=== PATIENT | male | born 1980 | race African-American/Black ===

== ENCOUNTER 2017-03-26 21:59 | Emergency (ER) | payer OTHER ==
[~2017-03-26] VITALS: Ht 180.3 cm; Wt 74.0 kg
[2017-03-26 22:01] VITALS: BP 148/90
== END 2017-03-27 01:00 | disposition left against medical advice (07) ==
LOC: ER 22:15
DX: R51 Headache (principal); Z53.21 Procedure and treatment not carried out due to patient leaving prior to being seen by health care provider

== ENCOUNTER 2020-05-21 14:07 | Emergency (ER) | payer OTHER ==
[~2020-05-21] VITALS: Ht 177.8 cm; Wt 77.5 kg
[2020-05-21 14:45] VITALS: BP 156/95
== END 2020-05-21 15:04 | disposition home or self-care (01) ==
LOC: ER 14:16
DX: R00.2 Palpitations (principal); R07.2 Precordial pain; M79.602 Pain in left arm; R03.0 Elevated blood-pressure reading, without diagnosis of hypertension; F12.90 Cannabis use, unspecified, uncomplicated; F15.90 Other stimulant use, unspecified, uncomplicated; Z87.81 Personal history of (healed) traumatic fracture
CPT/HCPCS: 93005; 99283

== ENCOUNTER 2020-08-14 20:19 | Emergency (ER) | payer MEDICAID, OTHER | END 2020-08-14 20:37 | disposition left against medical advice (07) | LOC: ER 20:19 | DX: R42 Dizziness and giddiness (principal); Z53.21 Procedure and treatment not carried out due to patient leaving prior to being seen by health care provider ==

== ENCOUNTER 2020-08-17 13:01 | Emergency (ER) | payer OTHER ==
[~2020-08-17] VITALS: Ht 177.8 cm; Wt 85.0 kg
[2020-08-17 14:13] LABS: BG BASE EXCESS 0.6 mmol/L (-2.0-2.0); BG CARBOXYHEMOGLOBIN 0.1 % (0.5-1.5); BG DEOXYHEMOGLOBIN 2.7 % (0.0-5.0); BG FRACTION INSPIRED OXYGEN 21; BG HCO3 ACT 25.9 mmol/L (22.0-26.0); BG METHEMOGLOBIN 0.3 % (0.0-1.5); BG OXYGEN SATURATION 97.3 % (92.0-98.5); BG OXYHEMOGLOBIN 96.9 % (94.0-97.0); BG PCO2 44.1 mmHg (35.0-45.0); BG PH 7.387 (7.350-7.450); BG PO2 95.4 mmHg (75.0-100.0); BG SAMPLE SITE RIGHT BRACHIAL; BG VENT MODE ROOM AIR
[2020-08-17 14:35] LABS: CHLORIDE 109 mEq/L (98-107)
[2020-08-17 14:39] LABS: BASOPHILS % 0.7 % (0.0-2.0); EOSINOPHILS % 2.3 % (0.0-5.0); ETHANOL BLOOD < 10 mg/dL; LYMPHOCYTES % 25.6 % (20.0-50.0); MEAN CORPUSCULAR HEMOGLOBIN 27.6 pg (28.0-32.0); MEAN PLATELET VOLUME 8.8 fl (7.4-10.4); MONOCYTES % 5.6 % (2.0-8.0); NEUTROPHILS % 65.8 % (40.0-76.0); PLATELET 511 x1000/uL (130-400); RED BLOOD CELL COUNT 4.69 mill/uL (4.7-6.1); RED CELL DISTRIBUTION WIDTH 16.6 % (11.6-14.6)
[2020-08-17 14:58] LABS: *AMPHETAMINES SCREEN URINE NEGATIVE (NEGATIVE); *BARBITURATES SCREEN URINE NEGATIVE (NEGATIVE); *BENZODIAZEPINES SCREEN URINE NEGATIVE (NEGATIVE); *COCAINE SCREEN URINE NEGATIVE (NEGATIVE); METHADONE URINE SCREEN NEGATIVE (NEGATIVE)
[2020-08-17 14:59] LABS: CANNABINOID URINE SCREEN NEGATIVE (NEGATIVE); OPIATES URINE SCREEN NEGATIVE (NEGATIVE); PHENCYCLIDINE URINE SCREEN NEGATIVE (NEGATIVE)
[2020-08-17 15:33] VITALS: BP 126/73
== END 2020-08-17 15:47 | disposition home or self-care (01) ==
LOC: ER 13:01
DX: R07.89 Other chest pain (principal); F41.0 Panic disorder [episodic paroxysmal anxiety]; F12.90 Cannabis use, unspecified, uncomplicated; F15.10 Other stimulant abuse, uncomplicated; D64.9 Anemia, unspecified; D72.829 Elevated white blood cell count, unspecified
CPT/HCPCS: 36415; 36600; 71045; 80053; 80305; 80320; 82375; 82805; 83880; 84484; 85025; 93005; 99285; G0480

== ENCOUNTER 2020-10-24 17:42 | Emergency (ER) | payer OTHER, MEDICAID ==
[~2020-10-24] VITALS: Ht 177.8 cm; Wt 81.0 kg
[2020-10-24 17:49] VITALS: BP 137/93
[2020-10-24] MEDS ORDERED: MAGNESIUM/ALUMINUM HYDROXIDE/SIMETHICONE 30ML UDC PO STA (18:12)
[2020-10-24] MEDS ORDERED: ONDANSETRON 4MG ODT PO STA (18:12)
[2020-10-24] MEDS ORDERED: ACETAMINOPHEN 325MG TABLET PO STA (18:12)
[2020-10-24 18:58] LABS: CLARITY URINE CLEAR (CLEAR); COLOR URINE YELLOW (YELLOW); KETONES URINE TRACE (NEGATIVE); LEUKOCYTE ESTERASE URINE NEGATIVE (NEGATIVE); NITRITE URINE NEGATIVE (NEGATIVE); OCCULT BLOOD URINE NEGATIVE (NEGATIVE); PH URINE 5.5 (4.5-8.0); PROTEIN URINE 1+ (NEGATIVE); SPECIFIC GRAVITY URINE 1.022 (1.005-1.030); UROBILINOGEN URINE 0.2 E.U./dL (0.2-1.0)
[2020-10-24 19:10] LABS: *AMPHETAMINES SCREEN URINE PRESUMTIVE POSITIVE (NEGATIVE); *BARBITURATES SCREEN URINE NEGATIVE (NEGATIVE); *BENZODIAZEPINES SCREEN URINE NEGATIVE (NEGATIVE)
[2020-10-24 19:11] LABS: *COCAINE SCREEN URINE NEGATIVE (NEGATIVE); METHADONE URINE SCREEN NEGATIVE (NEGATIVE); PHENCYCLIDINE URINE SCREEN NEGATIVE (NEGATIVE)
[2020-10-24 19:14] LABS: OPIATES URINE SCREEN NEGATIVE (NEGATIVE)
[2020-10-24 19:20] LABS: CANNABINOID URINE SCREEN NEGATIVE (NEGATIVE)
[2020-10-24 19:25] LABS: BASOPHILS % 0.4 % (0.0-2.0); EOSINOPHILS % 3.2 % (0.0-5.0); HEMATOCRIT. 36.5 % (42.0-52.0); HEMOGLOBIN. 12.2 g/dL (14.0-18.0); LYMPHOCYTES % 30.5 % (20.0-50.0); MEAN CORPUSCULAR HEMOGLOBIN 28.4 pg (28.0-32.0); MEAN CORPUSCULAR VOLUME 84.9 fL (80.0-94.0); MONOCYTES % 3.5 % (2.0-8.0); NEUTROPHILS % 62.4 % (40.0-76.0); PLATELET 549 x1000/uL (130-400); RED CELL DISTRIBUTION WIDTH 15.2 % (11.6-14.6)
[2020-10-24 19:32] LABS: CHLORIDE 110 mEq/L (98-107)
[2020-10-24 19:37] LABS: ETHANOL BLOOD 12 mg/dL
[2020-10-24] MEDS ORDERED: FAMO-135 PO (20:36)
== END 2020-10-24 20:45 | disposition home or self-care (01) ==
LOC: ER 17:42
DX: R10.12 Left upper quadrant pain (principal); R00.2 Palpitations; F10.129 Alcohol abuse with intoxication, unspecified; F15.129 Other stimulant abuse with intoxication, unspecified; F16.129 Hallucinogen abuse with intoxication, unspecified; Y90.0 Blood alcohol level of less than 20 mg/100 ml
CPT/HCPCS: 36415; 80053; 80305; 80320; 81003; 83690; 85025; 93005; 99284; Q0162; G0480

== ENCOUNTER 2020-10-29 11:51 | Emergency (ER) | payer MEDICAID, OTHER ==
[~2020-10-29] VITALS: Ht 177.8 cm; Wt 81.0 kg
[~2020-10-29 11:51] MED LIST: FAMO-135 PO
[2020-10-29] MEDS ORDERED: SODIUM CHLORIDE 0.9% 1,000 ML IV ONE (12:30)
[2020-10-29 12:32] LABS: BASOPHILS % 0.7 % (0.0-2.0); EOSINOPHILS % 4.5 % (0.0-5.0); HEMATOCRIT. 39.9 % (42.0-52.0); HEMOGLOBIN. 12.9 g/dL (14.0-18.0); LYMPHOCYTES % 27.3 % (20.0-50.0); MEAN CORPUSCULAR HEMOGLOBIN 27.7 pg (28.0-32.0); MEAN CORPUSCULAR VOLUME 85.8 fL (80.0-94.0); MEAN PLATELET VOLUME 7.6 fl (7.4-10.4); MONOCYTES % 5.1 % (2.0-8.0); NEUTROPHILS % 62.4 % (40.0-76.0); PLATELET 650 x1000/uL (130-400); RED BLOOD CELL COUNT 4.65 mill/uL (4.7-6.1); RED CELL DISTRIBUTION WIDTH 15.4 % (11.6-14.6)
[2020-10-29 12:37] LABS: CHLORIDE 106 mEq/L (98-107)
[2020-10-29 12:40] LABS: ETHANOL BLOOD < 10 mg/dL
[2020-10-29] MEDS ORDERED: PROCHLORPERAZINE MALEATE 10MG TABLET PO SCH (15:00)
[2020-10-29] MEDS ORDERED: KETOROLAC 15MG/ML VIAL IV SCH (15:00)
[2020-10-29] MEDS ORDERED: DIPHENHYDRAMINE 25MG CAPSULE PO SCH (15:00)
[2020-10-29] MEDS ORDERED: IOHEXOL-350 100 ML BOTTLE ONE (16:12)
[2020-10-29 18:55] VITALS: BP 144/86
== END 2020-10-29 18:57 | disposition home or self-care (01) ==
LOC: ER 12:13
DX: R51.9 Headache, unspecified (principal); R42 Dizziness and giddiness; H53.8 Other visual disturbances; R11.0 Nausea; R07.89 Other chest pain; I10 Essential (primary) hypertension; F14.90 Cocaine use, unspecified, uncomplicated; Z87.828 Personal history of other (healed) physical injury and trauma
CPT/HCPCS: 36415; 70496; 71045; 80053; 80320; 84484; 85025; 93005; 96374; 99285; J1885; J7030; Q0163; Q0164; Q9967; G0480

== ENCOUNTER 2020-11-02 09:27 | Emergency (ER) | payer MEDICAID ==
[~2020-11-02] VITALS: Ht 177.8 cm; Wt 81.0 kg
[2020-11-02] MEDS ORDERED: ASPIRIN 81MG TABLET PO ONE (10:00)
[2020-11-02 10:14] LABS: BASOPHILS % 0.7 % (0.0-2.0); EOSINOPHILS % 2.7 % (0.0-5.0); HEMATOCRIT. 37.5 % (42.0-52.0); HEMOGLOBIN. 12.3 g/dL (14.0-18.0); LYMPHOCYTES % 21.6 % (20.0-50.0); MEAN CORPUSCULAR HEMOGLOBIN 28.1 pg (28.0-32.0); MEAN CORPUSCULAR VOLUME 85.6 fL (80.0-94.0); MEAN PLATELET VOLUME 7.9 fl (7.4-10.4); MONOCYTES % 2.6 % (2.0-8.0); NEUTROPHILS % 72.4 % (40.0-76.0); PLATELET 641 x1000/uL (130-400); RED BLOOD CELL COUNT 4.38 mill/uL (4.7-6.1); RED CELL DISTRIBUTION WIDTH 15.3 % (11.6-14.6)
[2020-11-02 10:23] LABS: CHLORIDE 105 mEq/L (98-107)
[2020-11-02] MEDS ORDERED: IBUP-2029 MT (12:34)
[2020-11-02 12:40] VITALS: BP 150/88
== END 2020-11-02 12:46 | disposition home or self-care (01) ==
LOC: ER 09:27
DX: R07.2 Precordial pain (principal); E87.6 Hypokalemia; I10 Essential (primary) hypertension
CPT/HCPCS: 36415; 71045; 80053; 83880; 84484; 85025; 93005; 99285; Z7610

== ENCOUNTER 2020-11-09 04:27 | Emergency (ER) | payer MEDICAID ==
[~2020-11-09] VITALS: Ht 175.3 cm; Wt 77.0 kg
[~2020-11-09 04:27] MED LIST changes: +IBUP-2029 MT
[2020-11-09] MEDS ORDERED: ONDANSETRON HCL 4MG/2ML INJ IV STA (04:50)
[2020-11-09] MEDS ORDERED: MORPHINE SULFATE 4 MG/ML CPJ (NOT FOR IM USE) IV STA (04:50)
[2020-11-09] MEDS ORDERED: NITROGLYCERIN OINT 1GM/INCH UDPKT TD ONE (05:00)
[2020-11-09] MEDS ORDERED: ASPIRIN 81MG TABLET PO ONE (05:00)
[2020-11-09] MEDS ORDERED: MORPHINE SULFATE 2 MG/ML CPJ (NOT FOR IM USE) IV SCH (05:00)
[2020-11-09] MEDS ORDERED: SODIUM CHLORIDE 0.9% 1,000 ML IV ONE (05:00)
[2020-11-09 05:05] LABS: BASOPHILS % 0.8 % (0.0-2.0); EOSINOPHILS % 2.3 % (0.0-5.0); HEMATOCRIT. 40.6 % (42.0-52.0); HEMOGLOBIN. 13.1 g/dL (14.0-18.0); LYMPHOCYTES % 21.5 % (20.0-50.0); MEAN CORPUSCULAR HEMOGLOBIN 27.3 pg (28.0-32.0); MEAN CORPUSCULAR VOLUME 84.8 fL (80.0-94.0); MEAN PLATELET VOLUME 8.3 fl (7.4-10.4); MONOCYTES % 3.6 % (2.0-8.0); NEUTROPHILS % 71.8 % (40.0-76.0); PLATELET 581 x1000/uL (130-400); RED BLOOD CELL COUNT 4.79 mill/uL (4.7-6.1)
[2020-11-09 05:12] LABS: CHLORIDE 106 mEq/L (98-107)
[2020-11-09] MEDS ORDERED: IOHEXOL-350 100 ML BOTTLE ONE (06:16)
[2020-11-09 06:53] VITALS: BP 138/92
== END 2020-11-09 06:57 | disposition home or self-care (01) ==
LOC: ER 04:27
DX: R07.89 Other chest pain (principal); I10 Essential (primary) hypertension; F41.9 Anxiety disorder, unspecified
CPT/HCPCS: 36415; 71045; 71275; 80053; 83880; 84484; 85025; 85379; 93005; 96361; 96374; 96375; 99285; J2270; J2405; J7030; Q9967; Z7610

== ENCOUNTER 2020-11-11 05:01 | Emergency (ER) | payer MEDICAID, OTHER ==
[~2020-11-11] VITALS: Ht 177.8 cm; Wt 80.0 kg
[2020-11-11 05:48] LABS: BASOPHILS % 0.4 % (0.0-2.0); HEMATOCRIT. 36.3 % (42.0-52.0); LYMPHOCYTES % 29.7 % (20.0-50.0); MEAN CORPUSCULAR VOLUME 84.8 fL (80.0-94.0); MEAN PLATELET VOLUME 7.7 fl (7.4-10.4); MONOCYTES % 3.5 % (2.0-8.0); NEUTROPHILS % 62.4 % (40.0-76.0); PLATELET 554 x1000/uL (130-400); RED BLOOD CELL COUNT 4.28 mill/uL (4.7-6.1); RED CELL DISTRIBUTION WIDTH 14.6 % (11.6-14.6)
[2020-11-11 05:56] LABS: CHLORIDE 107 mEq/L (98-107)
[2020-11-11] MEDS ORDERED: DICY20TA11 MT (06:42)
[2020-11-11] MEDS ORDERED: ACETAMINOPHEN 325MG TABLET PO ONE (07:00)
[2020-11-11] MEDS ORDERED: DICYCLOMINE HCL 10MG CAPSULE PO ONE (07:00)
[2020-11-11 07:30] VITALS: BP 134/86
== END 2020-11-11 08:05 | disposition left against medical advice (07) ==
LOC: ER 05:01
DX: R10.32 Left lower quadrant pain (principal); I10 Essential (primary) hypertension
CPT/HCPCS: 36415; 80053; 80305; 85025; 99283

== ENCOUNTER 2020-11-19 06:52 | Emergency (ER) | payer OTHER ==
[~2020-11-19] VITALS: Ht 177.8 cm; Wt 81.0 kg
[~2020-11-19 06:52] MED LIST changes: +DICY20TA11 MT
[2020-11-19] MEDS ORDERED: ONDANSETRON HCL 4MG/2ML INJ IV STA (07:40)
[2020-11-19] MEDS ORDERED: SODIUM CHLORIDE 0.9% 1,000 ML IV ONE (08:00)
[2020-11-19] MEDS ORDERED: MORPHINE SULFATE 2 MG/ML CPJ (NOT FOR IM USE) IV NR (08:16)
[2020-11-19] MEDS: MORPHINE SULFATE 4 MG/ML CPJ (NOT FOR IM USE) IV STA ×2 (08:22→08:27)
[2020-11-19 08:39] LABS: BASOPHILS % 0.6 % (0.0-2.0); CHLORIDE 106 mEq/L (98-107); EOSINOPHILS % 0.7 % (0.0-5.0); HEMATOCRIT. 45.5 % (42.0-52.0); HEMOGLOBIN. 14.5 g/dL (14.0-18.0); LYMPHOCYTES % 14.3 % (20.0-50.0); MEAN CORPUSCULAR HEMOGLOBIN 27.6 pg (28.0-32.0); MEAN CORPUSCULAR VOLUME 86.3 fL (80.0-94.0); MEAN PLATELET VOLUME 8.2 fl (7.4-10.4); MONOCYTES % 2.4 % (2.0-8.0); PLATELET 685 x1000/uL (130-400); RED BLOOD CELL COUNT 5.27 mill/uL (4.7-6.1); RED CELL DISTRIBUTION WIDTH 15.7 % (11.6-14.6)
[2020-11-19 08:43] LABS: ETHANOL BLOOD < 10 mg/dL
[2020-11-19 09:00] VITALS: BP 137/85
[2020-11-19 09:23] LABS: CLARITY URINE CLEAR (CLEAR); COLOR URINE YELLOW (YELLOW); KETONES URINE NEGATIVE (NEGATIVE); LEUKOCYTE ESTERASE URINE NEGATIVE (NEGATIVE); NITRITE URINE NEGATIVE (NEGATIVE); OCCULT BLOOD URINE NEGATIVE (NEGATIVE); PH URINE 8.5 (4.5-8.0); PROTEIN URINE NEGATIVE (NEGATIVE); SPECIFIC GRAVITY URINE 1.012 (1.005-1.030); UROBILINOGEN URINE 0.2 E.U./dL (0.2-1.0)
[2020-11-19 09:51] LABS: *BARBITURATES SCREEN URINE NEGATIVE (NEGATIVE)
[2020-11-19 09:52] LABS: *AMPHETAMINES SCREEN URINE PRESUMTIVE POSITIVE (NEGATIVE); *BENZODIAZEPINES SCREEN URINE NEGATIVE (NEGATIVE); *COCAINE SCREEN URINE NEGATIVE (NEGATIVE); CANNABINOID URINE SCREEN NEGATIVE (NEGATIVE); METHADONE URINE SCREEN NEGATIVE (NEGATIVE); OPIATES URINE SCREEN PRESUMTIVE POSITIVE (NEGATIVE); PHENCYCLIDINE URINE SCREEN NEGATIVE (NEGATIVE)
== END 2020-11-19 11:12 | disposition home or self-care (01) ==
LOC: ER 06:52
DX: R10.9 Unspecified abdominal pain (principal); I10 Essential (primary) hypertension
CPT/HCPCS: 36415; 71045; 74176; 80053; 80305; 80320; 81003; 83605; 83690; 83735; 83880; 84443; 84484; 85025; 93005; 96361; 96374; 96375; 99285; J2270; J2405; J7030; Z7610; G0480

== ENCOUNTER 2020-11-20 00:50 | Emergency (ER) | payer OTHER ==
[~2020-11-20] VITALS: Ht 180.3 cm; Wt 83.0 kg
[2020-11-20 01:50] VITALS: BP 139/90
== END 2020-11-20 02:10 | disposition left against medical advice (07) ==
LOC: ER 01:02
DX: R07.89 Other chest pain (principal); F41.9 Anxiety disorder, unspecified; I10 Essential (primary) hypertension
CPT/HCPCS: 93005; 99283

== ENCOUNTER 2020-11-20 07:25 | Emergency (ER) | payer OTHER ==
[~2020-11-20] VITALS: Ht 172.7 cm; Wt 83.0 kg
[2020-11-20] MEDS ORDERED: NITROGLYCERIN 0.4MG TABLET SL SL PRN (08:30)
[2020-11-20] MEDS ORDERED: SODIUM CHLORIDE 0.9% 1,000 ML IV ONE (08:30)
[2020-11-20] MEDS ORDERED: LORAZEPAM 2MG/ML CPJ IV ONE (08:30)
[2020-11-20] MEDS ORDERED: ASPIRIN 81MG TABLET PO ONE (08:30)
[2020-11-20 08:55] LABS: BASOPHILS % 0.6 % (0.0-2.0); EOSINOPHILS % 3.8 % (0.0-5.0); HEMATOCRIT. 37.2 % (42.0-52.0); LYMPHOCYTES % 21.3 % (20.0-50.0); MEAN CORPUSCULAR HEMOGLOBIN 27.8 pg (28.0-32.0); MEAN CORPUSCULAR VOLUME 85.8 fL (80.0-94.0); MEAN PLATELET VOLUME 8.2 fl (7.4-10.4); MONOCYTES % 5.1 % (2.0-8.0); NEUTROPHILS % 69.2 % (40.0-76.0); PLATELET 589 x1000/uL (130-400); RED BLOOD CELL COUNT 4.33 mill/uL (4.7-6.1); RED CELL DISTRIBUTION WIDTH 15.8 % (11.6-14.6)
[2020-11-20 09:04] LABS: CHLORIDE 106 mEq/L (98-107)
[2020-11-20 09:09] LABS: ETHANOL BLOOD 16 mg/dL
[2020-11-20 15:03] VITALS: BP 132/74
== END 2020-11-20 15:06 | disposition home or self-care (01) ==
LOC: ER 07:31
DX: R07.89 Other chest pain (principal); F15.10 Other stimulant abuse, uncomplicated; E03.9 Hypothyroidism, unspecified; F41.9 Anxiety disorder, unspecified; I10 Essential (primary) hypertension
CPT/HCPCS: 36415; 71045; 80053; 80320; 83690; 83880; 84484; 85025; 93005; 96361; 96374; 99285; J2060; J7030; Z7610; G0480

== ENCOUNTER 2020-12-02 16:05 | Emergency (ER) | payer OTHER ==
[~2020-12-02] VITALS: Ht 172.7 cm; Wt 65.0 kg
[2020-12-02] MEDS ORDERED: FAMOTIDINE 20MG TABLET PO ONE (16:45)
[2020-12-02] MEDS ORDERED: ONDANSETRON 4MG ODT PO ONE (16:45)
[2020-12-02] MEDS ORDERED: TRAMADOL 50MG TABLET PO ONE (18:15)
[2020-12-02 18:30] VITALS: BP 140/80
[2020-12-02] MEDS ORDERED: ONDA4TAB11 PO (20:28)
[2020-12-02] MEDS ORDERED: [UNRECOGNIZED DRUG - CODE] PO (20:28)
== END 2020-12-02 20:20 | disposition left against medical advice (07) ==
LOC: ER 16:05
DX: R10.13 Epigastric pain (principal); F15.10 Other stimulant abuse, uncomplicated; I10 Essential (primary) hypertension
CPT/HCPCS: 36415; 83690; 99284; Q0162

== ENCOUNTER 2020-12-21 16:38 | Emergency (ER) | payer OTHER ==
[~2020-12-21] VITALS: Ht 177.8 cm; Wt 81.0 kg
[~2020-12-21 16:38] MED LIST changes: +ONDA4TAB11 PO; +[UNRECOGNIZED DRUG - CODE] PO
[2020-12-21 16:40] VITALS: BP 148/98
[2020-12-21 17:05] LABS: BASOPHILS % 0.5 % (0.0-2.0); EOSINOPHILS % 2.2 % (0.0-5.0); HEMATOCRIT. 40.3 % (42.0-52.0); HEMOGLOBIN. 13.1 g/dL (14.0-18.0); LYMPHOCYTES % 20.4 % (20.0-50.0); MEAN CORPUSCULAR HEMOGLOBIN 27.5 pg (28.0-32.0); MEAN CORPUSCULAR VOLUME 84.5 fL (80.0-94.0); MEAN PLATELET VOLUME 7.9 fl (7.4-10.4); NEUTROPHILS % 71.9 % (40.0-76.0); PLATELET 602 x1000/uL (130-400); RED BLOOD CELL COUNT 4.77 mill/uL (4.7-6.1); RED CELL DISTRIBUTION WIDTH 15.5 % (11.6-14.6)
[2020-12-21 17:08] LABS: CHLORIDE 105 mEq/L (98-107)
== END 2020-12-21 22:55 | disposition home or self-care (01) ==
LOC: ER 16:38
DX: F41.1 Generalized anxiety disorder (principal)
CPT/HCPCS: 36415; 80053; 83880; 84484; 85025; 93005; 99284

== ENCOUNTER 2021-01-29 07:05 | Emergency (ER) | payer MEDICAID, OTHER ==
[~2021-01-29] VITALS: Ht 177.8 cm; Wt 84.0 kg
[2021-01-29] MEDS ORDERED: METOCLOPRAMIDE HCL 10MG/2ML VIAL IV STA (07:42)
[2021-01-29] MEDS ORDERED: FAMOTIDINE 20MG/2ML VIAL IV STA (07:42)
[2021-01-29] MEDS ORDERED: SODIUM CHLORIDE 0.9% 1,000 ML IV ONE (07:45)
[2021-01-29 08:14] LABS: BASOPHILS % 0.5 % (0.0-2.0); EOSINOPHILS % 5.6 % (0.0-5.0); HEMATOCRIT. 45.2 % (42.0-52.0); HEMOGLOBIN. 14.6 g/dL (14.0-18.0); LYMPHOCYTES % 23.3 % (20.0-50.0); MEAN CORPUSCULAR HEMOGLOBIN 27.4 pg (28.0-32.0); MEAN CORPUSCULAR VOLUME 84.5 fL (80.0-94.0); MONOCYTES % 5.7 % (2.0-8.0); NEUTROPHILS % 64.9 % (40.0-76.0); PLATELET 472 x1000/uL (130-400); RED BLOOD CELL COUNT 5.35 mill/uL (4.7-6.1); RED CELL DISTRIBUTION WIDTH 15.2 % (11.6-14.6)
[2021-01-29 08:22] LABS: CHLORIDE 107 mEq/L (98-107)
[2021-01-29] MEDS ORDERED: IOHEXOL-300 100 ML BOTTLE ONE (11:34)
[2021-01-29 14:00] VITALS: BP 145/90
== END 2021-01-29 14:55 | disposition home or self-care (01) ==
LOC: ER 07:58
DX: R10.31 Right lower quadrant pain (principal); F41.9 Anxiety disorder, unspecified; I10 Essential (primary) hypertension; F15.10 Other stimulant abuse, uncomplicated; Z79.899 Other long term (current) drug therapy
CPT/HCPCS: 36415; 74177; 80053; 83690; 85025; 96361; 96374; 96375; 99285; J2765; J3490; J7030; Q9967

== ENCOUNTER 2021-04-13 10:18 | Emergency (ER) | payer MEDICAID ==
[~2021-04-13] VITALS: Ht 177.8 cm; Wt 77.0 kg
[2021-04-13] MEDS ORDERED: FAMOTIDINE 20MG/2ML VIAL IV STA (10:29)
[2021-04-13] MEDS ORDERED: ONDANSETRON HCL 4MG/2ML INJ IV STA (10:29)
[2021-04-13] MEDS ORDERED: MAGNESIUM/ALUMINUM HYDROXIDE/SIMETHICONE 30ML UDC PO STA (10:29)
[2021-04-13] MEDS ORDERED: SODIUM CHLORIDE 0.9% 1,000 ML IV ONE (10:30)
[2021-04-13 11:29] LABS: BASOPHILS % 0.5 % (0.0-2.0); EOSINOPHILS % 5.2 % (0.0-5.0); HEMATOCRIT. 39.5 % (42.0-52.0); HEMOGLOBIN. 13.2 g/dL (14.0-18.0); LYMPHOCYTES % 27.7 % (20.0-50.0); MEAN CORPUSCULAR HEMOGLOBIN 27.8 pg (28.0-32.0); MONOCYTES % 6.3 % (2.0-8.0); NEUTROPHILS % 60.3 % (40.0-76.0); PLATELET 460 x1000/uL (130-400); RED BLOOD CELL COUNT 4.75 mill/uL (4.7-6.1); RED CELL DISTRIBUTION WIDTH 15.8 % (11.6-14.6)
[2021-04-13 11:34] LABS: CHLORIDE 107 mEq/L (98-107)
[2021-04-13 11:57] VITALS: BP 122/77
== END 2021-04-13 13:19 | disposition left against medical advice (07) ==
LOC: ER 10:28
DX: R10.13 Epigastric pain (principal); R07.2 Precordial pain; R11.0 Nausea; R14.3 Flatulence; Z87.19 Personal history of other diseases of the digestive system
CPT/HCPCS: 36415; 71045; 80053; 83690; 84484; 85025; 93005; 96361; 96374; 96375; 99285; J2405; J3490; J7030; Z7610; 80305

== ENCOUNTER 2021-09-01 16:16 | Emergency (ER) | payer MEDICAID ==
[~2021-09-01] VITALS: Ht 177.8 cm; Wt 77.0 kg
[~2021-09-01 16:16] MED LIST changes: -DICY20TA11 MT; +DICY20TA2 MT
[2021-09-01 16:18] VITALS: BP 120/75
[2021-09-01] MEDS ORDERED: NITROGLYCERIN 0.4MG TABLET SL SL PRN (23:15)
[2021-09-01] MEDS ORDERED: ASPIRIN 81MG TABLET PO ONE (23:15)
== END 2021-09-02 07:11 | disposition left against medical advice (07) ==
LOC: ER 16:16
DX: Z53.21 Procedure and treatment not carried out due to patient leaving prior to being seen by health care provider (principal); R07.9 Chest pain, unspecified
CPT/HCPCS: 82962; 93005

== ENCOUNTER 2023-01-22 15:43 | Emergency (ER) | payer MEDICAID, OTHER ==
[~2023-01-22] VITALS: Ht 177.8 cm; Wt 77.0 kg
[~2023-01-22 15:43] MED LIST changes: +[UNRECOGNIZED DRUG - CODE] PO; -[UNRECOGNIZED DRUG - CODE] PO
[2023-01-22 15:50] VITALS: BP 151/107; RESP 18; TEMP 98.6; O2SAT 99
[2023-01-22 15:56] VITALS: PULSE 102
[2023-01-22] MEDS ORDERED: DICL100G32 TP (16:34)
[2023-01-22] MEDS ORDERED: NAPR-1129 MT (16:34)
== END 2023-01-22 16:44 | disposition home or self-care (01) ==
LOC: ER 15:43
DX: M25.512 Pain in left shoulder (principal); F12.10 Cannabis abuse, uncomplicated; I10 Essential (primary) hypertension
CPT/HCPCS: 73030; 99283